=== PATIENT | male | born 1975 | race Caucasian/White ===

== ENCOUNTER → 2018-02-23 | Outpatient (CLI) | payer BC ==
[~2018-02-23] MED LIST: SINCALIDE INJ 1.6 MCG in SODIUM CHLORIDE 0.9% 100ML 100 ML IV SCH
--- NOTE | 2018-02-23 12:34 | DIAGNOSTIC IMAGING REPORT ---
NUCLEAR MEDICINE HEPATOBILIARY SCAN WITH EJECTION FRACTION HISTORY: R10.11 Abdominal pain, RUQ (right upper quadrant)with EJECTION F COMPARISON: Abdominal ultrasound 02/10/2018. TECHNIQUE: Immediately following the intravenous administration of 5.6 mCi Tc-99m Choletec, dynamic anterior abdominal imaging pre/post 1.6 mcg of Kinevac was performed. FINDINGS: Uniform hepatic tracer accumulation is shown. Prompt intrahepatic biliary excretion is seen. The gallbladder, common bile duct, and small bowel are all visualized by 30 minutes. This appearance represents the normal sequence of biliary excretion. The gall bladder ejection fraction following administration of Kinevac was 47% (normal >35%). IMPRESSION: 1. No evidence for cystic duct obstruction. 2. Gallbladder ejection fraction calculated to be 47 %. Electronically signed by: Pavel Alejandra M.D. 02/23/2018 12:33 PM Dictated Date/Time: 02/23/2018 12:32 PM
== END | disposition home or self-care (01) ==
LOC: C.NUCL 10:05
PROVIDERS: ATTEND Physician Assistant Medical
DX: R10.11 Right upper quadrant pain (principal)

== ENCOUNTER → 2018-03-03 | Outpatient (CLI) | payer BC ==
--- NOTE | 2018-03-03 07:07 | DIAGNOSTIC IMAGING REPORT ---
ABDOMEN FOR HERNIA HISTORY: 42 years-old Male R10.11 Abdominal pain, RUQ (right upper quadrant)right upper donte acute right upper quadrant abdominal pain with concern for abdominal wall hernia COMPARISON: Abdominal ultrasound 02/10/2018 TECHNIQUE: Multiple real-time significant images of the right upper quadrant abdominal wall soft tissues were obtained assessing grayscale appearance and color flow FINDINGS/IMPRESSION: Within the area of clinical concern within the right upper quadrant abdominal wall, no focal mass, tissue heterogeneity or abdominal wall hernia identified. The above report was generated using voice recognition software. It may contain grammatical, syntax or spelling errors. Electronically signed by: Edinson Hummel M.D. 03/03/2018 7:06 AM Dictated Date/Time: 03/03/2018 7:04 AM
--- NOTE | 2018-03-03 07:56 | DIAGNOSTIC IMAGING REPORT ---
CHEST 2 VIEWS ROUTINE HISTORY: 42 years-old Male R10.11 Abdominal pain, RUQ (right upper quadrant) acute right upper quadrant abdominal pain COMPARISON: Right rib radiographs same day TECHNIQUE: PA and lateral views of the chest FINDINGS: Cardiomediastinal and hilar silhouettes are within normal limits. No pneumothorax, pleural effusion, focal airspace consolidation or overt pulmonary edema. The bones of the chest appear grossly intact. IMPRESSION: No acute process. The above report was generated using voice recognition software. It may contain grammatical, syntax or spelling errors. Electronically signed by: Edinson Hummel M.D. 03/03/2018 7:55 AM Dictated Date/Time: 03/03/2018 7:53 AM
--- NOTE | 2018-03-03 08:00 | DIAGNOSTIC IMAGING REPORT ---
R RIBS UNILATERAL MIN 2 VIEWS CLINICAL HISTORY: Right-sided chest pain. COMPARISON STUDY: Chest 03/03/2018. FINDINGS: 4 views of the right ribs were submitted for review. No right-sided rib fractures. No right pneumothorax or pleural effusion. IMPRESSION: No right-sided rib fractures. Electronically signed by: Pavel Alejandra M.D. 03/03/2018 7:59 AM Dictated Date/Time: 03/03/2018 7:57 AM
== END | disposition home or self-care (01) ==
LOC: C.ULTR 06:34
PROVIDERS: ATTEND Surgery
DX: R10.11 Right upper quadrant pain (principal)